=== PATIENT | female | born 1930 | race Caucasian/White ===

== ENCOUNTER 2017-05-29 14:20 | Inpatient (IN) | payer MEDICARE, BC ==
[~2017-05-29] VITALS: Ht 162.6 cm; Wt 61.4 kg
[~2017-05-29 14:20] MED LIST: ALEN1TAB48 PO; ASPI81CH37 CHEW; FISHCAP4 PO; HYDR200T3 PO; LEVO88TA2 PO; LISI10TA3 PO; OMEP40CA2 PO; PRED1 PO; SIMV40TA PO
[2017-05-29] MEDS ORDERED: NALOXONE HCL 0.4 MG/ML AMP IV PUSH PRN (19:15)
[2017-05-29] MEDS ORDERED: SODIUM CHLORIDE 0.9% FLUSH 10 ML FLUSH IV FLUSH PRN (19:15)
[2017-05-29] MEDS ORDERED: ONDANSETRON HCL 4 MG/2 ML VIAL IV PUSH PRN (19:15)
[2017-05-29 20:05] VITALS: BP 162/64; PULSE 78; RESP 16; TEMP 97.6; O2SAT 95
[2017-05-29 21:21] VITALS: PULSE 86
[2017-05-29] MEDS ORDERED: INSULIN HUMAN REGULAR 1,000 UNITS/10 ML VIAL SQ PRN (22:00)
[2017-05-29] MEDS ORDERED: CHLORHEXIDINE GLUCONATE 2 % 1 PACK (2 CLOTHS) TOPICAL PRN (22:00)
[2017-05-29] MEDS ORDERED: POVIDONE IODINE 5% (ANTISEPSIS KIT) 4 APPLICATIONS EACH NARE PRN (22:00)
[2017-05-29] MEDS ORDERED: SODIUM CHLORID 0.9% 500 ML IV PRN (22:00)
[2017-05-29] MEDS ORDERED: LACTATED RINGER'S 1000 ML IV PRN (22:00)
[2017-05-29] MEDS ORDERED: METOPROLOL TARTRATE 25 MG TAB PO PRN (22:00)
--- NOTE | 2017-05-29 22:07 | HHI.HP ---
HPI Service [facility] Primary Care Physician Raghav Caba MD Admission Diagnosis Diagnoses: History of Present Illness came from outside, went to kitchen, around 9a.m.today. 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- done in [place] about 3 yrs ago left ear cancer - skin cancer, benign hypothyroidism Past Surgical History left ear cancer removal skin cancer of head and nose removed bilateral hip replacement hysterectomy heart valve replaced left knee replaced appendectomy at 6yo Allergies: Coded Allergies: No Known Allergies (Verified Allergy, Unknown, 05/29/17) Family History mother - dm Social History no smoking/ no etoh/ no drugs lives on her own, but no longer drives, nephew lives around the corner from her Physical Exam Vital Signs Vital Signs Date Time Temp Pulse Resp B/P (MAP) Pulse Ox O2 Delivery O2 Flow Rate FiO2 05/29/17 21:21 86 05/29/17 20:05 97.6 78 16 162/64 (96) 95 Physical Exam GENERAL: This is a well-nourished, well-developed patient, in no apparent distress. SKIN: No rashes, ecchymoses or lesions. Cool and dry. HEAD: Atraumatic. Normocephalic. No temporal or scalp tenderness. EYES: Pupils equal round and reactive. Extraocular motions intact. No scleral icterus. No injection or drainage. ENT: Nose without bleeding, purulent drainage or septal hematoma. Throat without erythema, tonsillar hypertrophy or exudate. Uvula midline. Airway patent. NECK: Trachea midline. No JVD or lymphadenopathy. Supple, nontender, no meningeal signs. CARDIOVASCULAR: Regular rate and rhythm without murmurs, gallops, or rubs. RESPIRATORY: Clear to auscultation. Breath sounds equal bilaterally. No wheezes , rales, or rhonchi. GASTROINTESTINAL: Abdomen soft, non-tender, nondistended. No hepato-splenomegaly , or palpable masses. No guarding. MUSCULOSKELETAL: Extremities without clubbing, cyanosis, or edema. No joint tenderness, effusion, or edema noted. No calf tenderness. Negative Homans sign bilaterally. NEUROLOGICAL: Awake and alert. Cranial nerves II through XII intact. Motor and sensory grossly within normal limits. Five out of 5 muscle strength in all muscle groups. Normal speech. Caprini VTE Risk Assessment Caprini VTE Risk Assessment: Mod/High Risk (score >= 2) Caprini Risk Assessment Model Point Value = 1 Point Value = 2 Point Value = 3 Point Value = 5 Age 41-60 Minor surgery BMI > 25 kg/m2 Swollen legs Varicose veins or History of unexplained or recurrent spontaneous Oral contraceptives or hormone replacement Sepsis (< 1 month) Serious lung disease, including pneumonia (< 1 month) Abnormal pulmonary function Acute myocardial infarction Congestive heart failure (< 1 month) History of inflammatory bowel disease Medical patient at bed rest Age 61-74 Arthroscopic surgery Major open surgery (> 45 min) Laparoscopic surgery (> 45 min) Malignancy Confined to bed (> 72 hours) Immobilizing plaster cast Central venous access Age >= 75 History of VTE Family history of VTE Factor V Leiden Prothrombin [id number] Lupus anticoagulant Anticardiolipin antibodies Elevated serum homocysteine Heparin-induced thrombocytopenia Other congenital or acquired thrombophilia Stroke (< 1 month) Elective arthroplasty Hip, pelvis, or leg fracture Acute spinal cord injury (< 1 month) Prophylaxis Regimen Total Risk Factor Score Risk Level Prophylaxis Regimen 0-1 Low Early ambulation 2 Moderate Order ONE of the following: *Sequential Compression Device (SCD) *Heparin 5000 units SQ BID 3-4 Higher Order ONE of the following medications: *Heparin 5000 units SQ TID *Enoxaparin/Lovenox 40 mg SQ daily (WT < 150 kg, CrCl > 30 mL/min) *Enoxaparin/Lovenox 30 mg SQ daily (WT < 150 kg, CrCl > 10-29 mL/min) *Enoxaparin/Lovenox 30 mg SQ BID (WT < 150 kg, CrCl > 30 mL/min) AND/OR *Sequential Compression Device (SCD) 5 or more Highest Order ONE of the following medications: *Heparin 5000 units SQ TID (Preferred with Epidurals) *Enoxaparin/Lovenox 40 mg SQ daily (WT < 150 kg, CrCl > 30 mL/min) *Enoxaparin/Lovenox 30 mg SQ daily (WT < 150 kg, CrCl > 10-29 mL/min) *Enoxaparin/Lovenox 30 mg SQ BID (WT < 150 kg, CrCl > 30 mL/min) AND *Sequential Compression Device (SCD) Assessment and Plan Assessment and Plan s/p fall left hip intertroch fx htn heart valve replaced with pig valve 3 yrs ago hypothyroidism arthritis- on hydroxychloroquine and prednisone at home npo ortho consult pain control resume home meds hold asa dvt prophylaxis with scd gi prophylaxis with pantoprazole Physician Certification Order for Inpatient Services The services are ordered in accordance with Medicare regulations or non- Medicare payer requirements, as applicable. In the case of services not specified as inpatient-only, they are appropriately provided as inpatient services in accordance with the 2-midnight benchmark. days is the estimated time the patient will need to remain in the hospital, assuming treatment plan goals are met and no additional complications. Brenda Landa MD May 29, 2017 22:07
[2017-05-30] VITALS: BP 136/72; PULSE 85; RESP 16; TEMP 96.5; O2SAT 95
[2017-05-30 04:00] VITALS: BP 109/51; PULSE 69; RESP 15; TEMP 98.2; O2SAT 98
[2017-05-30] MEDS: LEVOTHYROXINE SODIUM 88 MCG TAB PO SCH (06:00)
[2017-05-30 07:21] LABS: AUTOMATED NEUTROPHIL # 3.9 TH/MM3 (1.8-7.7); BASOPHIL % 0.4 % (0.0-2.0); EOSINOPHIL % 0.4 % (0.0-4.0); HEMO FLAGS DIFF FINAL; LYMPH % 21.9 % (9.0-44.0); LYMPHOCYTE # 1.3 TH/MM3 (1.0-4.8); MEAN CELL VOLUME 90.9 FL (80.0-100.0); MEAN CORPUSCULAR HEMOGLOBIN 31.5 PG (27.0-34.0); MEAN CORPUSCULAR HGB CONC 34.7 % (32.0-36.0); MONO % 11.8 % (0.0-8.0); NEUT % 65.5 % (16.0-70.0); PLATELET COUNT 214 TH/MM3 (150-450); RED BLOOD COUNT 3.08 MIL/MM3 (4.00-5.30); RED CELL DISTRIBUTION WIDTH 12.8 % (11.6-17.2)
[2017-05-30 07:46] LABS: BICARBONATE 26.9 MEQ/L (21.0-32.0); POTASSIUM 4.1 MEQ/L (3.5-5.1)
[2017-05-30 08:00] VITALS: BP 113/49; PULSE 80; RESP 16; TEMP 98.3; O2SAT 96
[2017-05-30] MEDS: HYDROXYCHLOROQUINE SULFATE 200 MG TAB PO SCH ×2 (08:31→18:20)
[2017-05-30] MEDS: PANTOPRAZOLE SOD 40 MG DELAYED RELEASE TAB PO SCH (08:31)
[2017-05-30] MEDS: LISINOPRIL 10 MG TAB PO SCH (08:31)
[2017-05-30] MEDS: predniSONE 1 MG TAB PO SCH (08:31)
[2017-05-30] MEDS: SODIUM CHLORIDE 0.9% FLUSH 10 ML FLUSH IV FLUSH SCH ×2 (08:39→20:55)
[2017-05-30] MEDS: MORPHINE SULFATE 2 MG/ML INJ IV PUSH PRN ×2 (08:39→18:20)
[2017-05-30 12:00] VITALS: BP 101/65; PULSE 72; RESP 16; TEMP 97.7; O2SAT 95
[2017-05-30] MEDS ORDERED: WALKER WHEELS/F1 MIS (12:36)
--- NOTE | 2017-05-30 14:22 | MB ---
cc: AMIRA MCGEE DATE OF CONSULTATION: 05/30/2017 DATE OF : 1930 CHIEF COMPLAINT Left hip pain and left upper arm pain. HISTORY OF PRESENT ILLNESS The patient states she was at home in her kitchen when she fell trying to move a chair. The patient landed on her left hip and left shoulder. The patient reported immediate pain to the left hip and was unable to stand or ambulate. The patient denies loss of consciousness or hitting her head. The patient reports being able to move her left arm, however, this is limited compared to her normal range of motion. The patient used her LifeLine and called EMS who arrived and transported her to the hospital. Currently the patient reports moderate pain over the lateral aspect of her hip with movement. The patient also reports pain to the left upper arm and reports limited range of motion overhead. The patient denies any previous history of injury to the left upper extremity. The patient did have a left hip replacement in the past. The patient denies any tingling or numbness about the left upper or lower extremity. The patient reports having swelling over the lateral aspect of her hip. REVIEW OF SYSTEMS A review of systems is negative x12 except for what is stated in the HPI. PAST MEDICAL HISTORY 1. High blood pressure. 2. Skin cancer. 3. Osteoarthritis. PAST SURGICAL HISTORY 1. Removal of skin cancer from the left ear and face. 2. Bilateral hip replacements. 3. Left knee replacement. 4. Heart bypass with valve replacement. 5. Hysterectomy. 6. Appendectomy. ALLERGIES The patient has no known allergies. FAMILY HISTORY Mother had diabetes. SOCIAL HISTORY The patient denies any tobacco, alcohol, or drug use. The patient does report living alone. PHYSICAL EXAMINATION VITAL SIGNS: Temperature 98.3, heart rate 80, respirations 16, blood pressure 113/49, and pulse ox 96% on room air. GENERAL: The patient is a well-developed and well-nourished white female in no significant distress. SKIN: The patient has bruising about the right knee, left hip and left upper extremity. There are no rashes. The skin is cool and dry. HEAD: The patient's head is atraumatic and normocephalic. EYES: PERRLA. Extraocular movements are intact. EARS, NOSE, AND THROAT: There is no bleeding from the nose or ears. Moist mucous membranes. NECK: The patient's trachea is midline. The neck is supple. CARDIOVASCULAR: The patient has a regular rate and rhythm. The patient has 2+ pedal and radial pulses. PULMONARY: The patient has a symmetric chest wall rise and nonlabored breathing. ABDOMEN: The patient's abdomen is soft, nontender and nondistended. EXTREMITIES: The patient has good range of motion and no tenderness about the right hand, wrist, elbow, and shoulder. The patient's left upper extremity has no tenderness and good range of motion of the left wrist, hand, and elbow with limited range of motion of the left shoulder. There is some ecchymosis and tenderness to palpation over the left shoulder. I do not appreciate any crepitus with palpation. Regarding the patient's right lower extremity, there is no tenderness and good range of motion of the right ankle, knee and hip. There is some bruising about the right knee with mild swelling. Regarding the patient's left lower extremity, the patient has good range of motion and no tenderness about the left foot, ankle, and knee. The patient does have a well-healed incision about the left knee and the left hip. The patient has limited range of motion of the left hip with internal and external rotation. There is no groin pain with internal and external rotation, however, the patient does have some tenderness about the lateral aspect of the hip along with swelling and tenderness to palpation. Skin is intact about the left hip. NEUROLOGIC: The patient is alert and oriented x3 with cranial nerves intact. LABORATORY White blood cell count 6, hemoglobin 9.7, hematocrit 28, platelets 214. Creatinine 1.21. Glucose is 87. IMAGING X-ray of the right knee four views was taken on 05/29/2017 and reads as no evidence of recent bony injury. The patient has moderate severity compartmental osteoarthritis. I have reviewed these images and agree that I do not see any obvious fracture to the knee. I would say the patient has severe patellofemoral osteoarthritis with moderate to severe tibial femoral osteoarthritis. X-rays taken of the left hip and pelvis on 05/29/2017 reads as no evidence of fracture or dislocation of the left total hip arthroplasty. There is lucency at the metal bone interface in the supra-acetabular region and lucency at the cement bone interface proximally in the lateral formal region. Both of these findings suggest possible loosening. I did review these images and I am not convinced that there is any fracture of the acetabulum. I do not see any obvious loosening of the formal prosthesis. There is what appears to be a fracture of the greater trochanter. The fracture is minimally displaced and in overall good position. IMPRESSION 1. Left total hip arthroplasty from outside physician. 2. Fracture of the left hip greater trochanter with minimal displacement. 3. Right knee contusion. 4. Left shoulder pain, rule out fracture versus contusion. MEDICAL DECISION-MAKING After reviewing the images and evaluating the patient I do feel that we can manage the patient's injuries nonoperatively. Regarding the patient's right knee contusion, I would recommend ice and activity modification. Regarding the patient's left upper extremity complaints, I am going to order a stat. x-ray to rule out fracture. In the meantime the patient should limit her activity with the left upper extremity. The patient should be non-weightbearing at this time with the left upper extremity. The patient should use ice for swelling and pain. I am also going to order some pain medication by mouth for pain control. Regarding the patient's left hip, I do not see any obvious complication with the previous left hip replacement. The patient does have a minimally displaced fracture of the greater trochanter which I feel can be managed nonoperatively. I am going to order an abduction pillow for the patient to use while in bed. I am also going to limit the patient's weightbearing to toe-touch weightbearing on the left lower extremity. The patient should use ice for swelling. We discussed the need for close follow-up with this as any change in the patient's current fracture pattern or any signs of loosening of the prosthesis could warrant surgical intervention. We also discussed this diagnosis in detail and discussed the length of time required for healing. I do feel that the patient can have some physical therapy for instruction in toe-touch weightbearing as well as instruction in transfer techniques. I will follow-up with the patient tomorrow to follow-up on the x-rays of the left humerus and to establish a plan of care for this moving forward. I have discussed the aforementioned impression and plan of care with Dr. Mcgee and he agrees with this documentation. Dictated by; LIAM Calvo MD CALI Stokes/GEORGE /12:12 PM /2:13 PM
--- NOTE | 2017-05-30 14:37 | RADRPT ---
EXAM DATE/TIME: 05/30/2017 14:15 [facility] COMPARISON: No previous studies available for comparison. INDICATIONS : Fall, left humerus pain. MEDICAL HISTORY : Cardiovascular disease. SURGICAL HISTORY : None. ENCOUNTER: Subsequent ACUITY: 2 days PAIN SCORE: 4/10 LOCATION: Left Humerus FINDINGS: Two view examination of the left humerus demonstrates no evidence of fracture or dislocation. Bony m ineralization is normal. The soft tissue structures are intact. CONCLUSION: 1. No acute fracture or dislocation. Cameron Cooley MD on May 30, 2017 at 14:34 Board Certified Radiologist. This report was verified electronically.
[2017-05-30 16:30] VITALS: BP 138/59; PULSE 90; RESP 16; TEMP 98; O2SAT 97
[2017-05-30] MEDS ORDERED: ACETAMINOPHEN/HYDROcodone 325 MG/5 MG TAB PO PRN (19:15)
--- NOTE | 2017-05-30 19:36 | HHI.PR ---
Subjective Remarks In bed, no fever no chest pain or short of breath Pain in the hip Objective Vitals Vital Signs Date Time Temp Pulse Resp B/P (MAP) Pulse Ox O2 Delivery O2 Flow Rate FiO2 05/30/17 18:25 16 05/30/17 16:30 98.0 90 16 138/59 (85) 97 05/30/17 12:00 97.7 72 16 101/65 (77) 95 05/30/17 08:00 98.3 80 16 113/49 (70) 96 05/30/17 04:00 98.2 69 15 109/51 (70) 98 05/30/17 00:00 96.5 85 16 136/72 (93) 95 05/29/17 21:21 86 05/29/17 20:05 97.6 78 16 162/64 (96) 95 I/O 05/29/17 05/29/17 05/29/17 05/30/17 05/30/17 05/30/17 07:00 15:00 23:00 07:00 15:00 23:00 Intake Total 480 ml 480 ml Output Total 0 ml Balance 480 ml 480 ml Intake Oral 480 ml 480 ml Output Stool Total 0 ml # Voids 1 # Bowel Movements 0 Result Diagram: 05/30/17 0550 05/30/17 0550 Objective Remarks GENERAL: This is a well-nourished, well-developed patient, in no apparent distress. SKIN: No rashes, warm and dry HEAD: Atraumatic. Normocephalic. EYES: Pupils equal round and reactive. Extraocular motions intact. No scleral icterus. ENT: Nose without bleeding, or drainage, Airway patent. NECK: Trachea midline. Supple CARDIOVASCULAR: Regular rate and rhythm positive systolic murmur RESPIRATORY: Fair air entry bilaterally. No wheezes, rales, or rhonchi. GASTROINTESTINAL: Abdomen soft, non-tender, nondistended. Positive bowel sounds MUSCULOSKELETAL: Extremities without clubbing, cyanosis, or edema. Pedal pulses appreciated NEUROLOGICAL: Awake and alert. Moves all extremity. Normal speech.no focal neurological deficit A/P Assessment and Plan s/p fall left hip intertroch fx htn heart valve replaced with pig valve 3 yrs ago hypothyroidism arthritis- on hydroxychloroquine and prednisone at home Appreciate ortho consultation pain control resume home meds hold asa dvt prophylaxis with scd gi prophylaxis with pantoprazole Holland Dillard MD May 30, 2017 19:36
[2017-05-30 20:05] VITALS: BP 132/68; PULSE 81; RESP 17; TEMP 98.8; O2SAT 96
[2017-05-30] MEDS: ACETAMINOPHEN/HYDROcodone 325 MG/5 MG TAB PO PRN (20:51)
[2017-05-30] MEDS: PRAVASTATIN SOD 80 MG TAB PO SCH ×2 (20:54→21:20)
--- NOTE | 2017-05-30 21:27 | EKG ---
Date Performed: 05/29/2017 Time Performed: 21:53:53 PTAGE: 87 years EKG: Sinus rhythm NONSPECIFIC T-WAVE ABNORMALITY BORDERLINE ECG NO PREVIOUS TRACING DOCTOR: Elvira Mccormick Interpretating Date/Time 05/30/2017 21:25:47
[2017-05-31] VITALS: BP 109/48; PULSE 74; RESP 20; TEMP 98; O2SAT 95
[2017-05-31 04:00] VITALS: BP 126/51; PULSE 72; RESP 18; TEMP 99.1; O2SAT 96
[2017-05-31] MEDS: ACETAMINOPHEN/HYDROcodone 325 MG/5 MG TAB PO PRN ×3 (04:50→18:39)
[2017-05-31] MEDS: LEVOTHYROXINE SODIUM 88 MCG TAB PO SCH (04:50)
[2017-05-31 08:00] VITALS: BP 110/43; PULSE 60; RESP 16; TEMP 97.8; O2SAT 96
[2017-05-31] MEDS: LISINOPRIL 10 MG TAB PO SCH (09:00)
[2017-05-31] MEDS: HYDROXYCHLOROQUINE SULFATE 200 MG TAB PO SCH ×2 (09:35→18:39)
[2017-05-31] MEDS: PANTOPRAZOLE SOD 40 MG DELAYED RELEASE TAB PO SCH (09:35)
[2017-05-31] MEDS: predniSONE 1 MG TAB PO SCH (09:35)
[2017-05-31] MEDS: SODIUM CHLORIDE 0.9% FLUSH 10 ML FLUSH IV FLUSH SCH ×2 (09:35→19:31)
[2017-05-31] MEDS: MORPHINE SULFATE 2 MG/ML INJ IV PUSH PRN (10:49)
[2017-05-31 12:00] VITALS: BP 100/47; PULSE 98; RESP 16; TEMP 86; O2SAT 95
--- NOTE | 2017-05-31 12:44 | PD.ORT.PN ---
Subjective Subjective Remarks Patient is OOB in chair with continued pain to the lateral aspect of the hip with movement. Minimal pain when resting. Patient still reports pain to the LUE with movement. Patient denies tingling or numbness to the LLE or LUE. Objective Vitals Vital Signs Date Time Temp Pulse Resp B/P (MAP) Pulse Ox O2 Delivery O2 Flow Rate FiO2 05/31/17 08:00 97.8 60 16 110/43 (65) 96 05/31/17 04:00 99.1 72 18 126/51 (76) 96 05/31/17 00:00 98.0 74 20 109/48 (68) 95 05/30/17 20:05 98.8 81 17 132/68 (89) 96 05/30/17 18:25 16 05/30/17 16:30 98.0 90 16 138/59 (85) 97 I/O 05/30/17 05/30/17 05/30/17 05/31/17 05/31/17 05/31/17 07:00 15:00 23:00 07:00 15:00 23:00 Intake Total 480 ml Balance 480 ml Intake Oral 480 ml # Voids 1 2 # Bowel Movements 0 Result Diagram: 05/30/17 0550 05/30/17 0550 Imaging Last 48 hours Impressions Humerus X-Ray 05/30/17 0000 Signed Impressions: Service Date/Time: Tuesday, May 30, 2017 14:15 - CONCLUSION: 1. No acute fracture or dislocation. Cameron Cooley MD Objective Remarks LUE The patient continues to have mild bruising to the left shoulder with mild swelling. Patient has limited AROM overhead. 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 EHL/TA/G intact. 2+ pedal pulse. Calf is soft and nontender. + SILT. Well healed posterior hip incision. Limited AROM to the left hip. Skin is intact. Assessment & Plan Assessment and Plan Left hip greater trochanteric fracture Left DANITA, outside physician Right knee contusion Left shoulder moderate osteoarthritis with contusion 1. TTWB LLE 2. WBAT LUE 3. Hip ABD pillow while in bed. 4. Ice to the left hip, left shoulder, and right knee PRN 5. I reviewed and discussed the imaging of the left upper extremity which shows moderate OA of the left shoulder and no fracture. 6. Anticipatory discharge to SNF. Stable per ortho for discharge once cleared by medical. 7. F/U in the office with Dr. Hurd or LIAM Ramirez in 1-2 weeks. Jhonatan Marquez May 31, 2017 12:44
[2017-05-31] MEDS ORDERED: DEXTROSE 50% IN WATER 50 ML VIAL(D50) IV PUSH PRN (16:00)
[2017-05-31] MEDS ORDERED: GLUCAGON 1 MG/ML VIAL OTHER PRN (16:00)
--- NOTE | 2017-05-31 18:11 | HHI.PR ---
Subjective Remarks Follow up on fall and fracture Patient stable pain is tolerable, plan for discharge to SNF hopefully in a.m. Objective Vitals Vital Signs Date Time Temp Pulse Resp B/P (MAP) Pulse Ox O2 Delivery O2 Flow Rate FiO2 05/31/17 12:00 86.0 98 16 100/47 (64) 95 05/31/17 08:00 97.8 60 16 110/43 (65) 96 05/31/17 04:00 99.1 72 18 126/51 (76) 96 05/31/17 00:00 98.0 74 20 109/48 (68) 95 05/30/17 20:05 98.8 81 17 132/68 (89) 96 05/30/17 18:25 16 I/O 05/30/17 05/30/17 05/30/17 05/31/17 05/31/17 05/31/17 07:00 15:00 23:00 07:00 15:00 23:00 Intake Total 480 ml Balance 480 ml Intake Oral 480 ml # Voids 1 2 # Bowel Movements 0 Result Diagram: 05/30/17 0550 05/30/17 0550 Objective Remarks GENERAL: This is a well-nourished, well-developed patient, in no apparent distress. SKIN: No rashes, warm and dry HEAD: Atraumatic. Normocephalic. EYES: Pupils equal round and reactive. Extraocular motions intact. No scleral icterus. ENT: Nose without bleeding, or drainage, Airway patent. NECK: Trachea midline. Supple CARDIOVASCULAR: Regular rate and rhythm positive systolic murmur RESPIRATORY: Fair air entry bilaterally. No wheezes, rales, or rhonchi. GASTROINTESTINAL: Abdomen soft, non-tender, nondistended. Positive bowel sounds MUSCULOSKELETAL: Extremities without clubbing, cyanosis, or edema. Pedal pulses appreciated NEUROLOGICAL: Awake and alert. Moves all extremity. Normal speech.no focal neurological deficit A/P Assessment and Plan 87 y/o female came s/p fall , left hip intertroch fx , htn , heart valve replaced with pig valve 3 yrs ago , hypothyroidism arthritis- on hydroxychloroquine and prednisone at home Ortho consulted pain management provided, we held aspirin Holland Dillard MD May 31, 2017 18:11
[2017-05-31] MEDS: PRAVASTATIN SOD 80 MG TAB PO SCH (19:29)
[2017-05-31 20:00] VITALS: BP 109/59; PULSE 61; PULSE 64; RESP 17; TEMP 98.3; O2SAT 96
[2017-06-01] VITALS: BP 119/62; PULSE 68; RESP 16; TEMP 97.5; O2SAT 98
[2017-06-01] MEDS: ACETAMINOPHEN/HYDROcodone 325 MG/5 MG TAB PO PRN ×3 (03:59→16:03)
[2017-06-01 04:00] VITALS: BP 134/65; PULSE 77; RESP 17; TEMP 97.1; O2SAT 97
[2017-06-01] MEDS: LEVOTHYROXINE SODIUM 88 MCG TAB PO SCH (04:56)
[2017-06-01 08:00] VITALS: BP 132/52; PULSE 65; RESP 18; TEMP 97.4; O2SAT 96
[2017-06-01] MEDS: LISINOPRIL 10 MG TAB PO SCH (08:28)
[2017-06-01] MEDS: predniSONE 1 MG TAB PO SCH (08:28)
[2017-06-01] MEDS: HYDROXYCHLOROQUINE SULFATE 200 MG TAB PO SCH (08:28)
[2017-06-01] MEDS: SODIUM CHLORIDE 0.9% FLUSH 10 ML FLUSH IV FLUSH SCH (08:29)
[2017-06-01] MEDS: PANTOPRAZOLE SOD 40 MG DELAYED RELEASE TAB PO SCH (08:29)
[2017-06-01 11:27] VITALS: PULSE 68
--- NOTE | 2017-06-01 11:41 | HHI.DS ---
Discharge Summary Admission Date May 29, 2017 at 19:35 Discharge Date: Jun 01, 2017 Admitting Diagnosis (1) Fracture of greater trochanter ICD Code: S72.113A - Displaced fracture of greater trochanter of unspecified femur, initial encounter for closed fracture Procedures See below Brief History - From Admission came from outside, went to kitchen, around 9a.m.today. she was trying to move a chair and in so doing, the chair was moving forward and she fell down with it fell forward, and then to left did not hit head did not loose consciousness landed on left arm and left hip - felt like she got a knot not able to get up, has life alert and called for help then ambulance was sent right away and she got to hospital in [place] no premonitory symptoms no other symptoms in past week CBC/BMP: 05/30/17 0550 05/30/17 0550 Significant Findings Laboratory Tests Test 05/30/17 05:50 Red Blood Count 3.08 MIL/MM3 (4.00-5.30) Hemoglobin 9.7 GM/DL (11.6-15.3) Hematocrit 28.0 % (35.0-46.0) Monocytes (%) (Auto) 11.8 % (0.0-8.0) Blood Urea Nitrogen 24 MG/DL (7-18) Creatinine 1.21 MG/DL (0.50-1.00) Estimat Glomerular Filtration Rate 42 ML/MIN (>89) PE at Discharge GENERAL: This is a well-nourished, well-developed patient, in no apparent distress. SKIN: No rashes, warm and dry HEAD: Atraumatic. Normocephalic. EYES: Pupils equal round and reactive. Extraocular motions intact. No scleral icterus. ENT: Nose without bleeding, or drainage, Airway patent. NECK: Trachea midline. Supple CARDIOVASCULAR: Regular rate and rhythm positive systolic murmur RESPIRATORY: Fair air entry bilaterally. No wheezes, rales, or rhonchi. GASTROINTESTINAL: Abdomen soft, non-tender, nondistended. Positive bowel sounds MUSCULOSKELETAL: Extremities without clubbing, cyanosis, or edema. Pedal pulses appreciated NEUROLOGICAL: Awake and alert. Moves all extremity. Normal speech.no focal neurological deficit Hospital Course 87 y/o female came s/p fall , left hip intertroch fx , htn , heart valve replaced with pig valve 3 yrs ago , hypothyroidism arthritis- on hydroxychloroquine and prednisone at home Ortho consulted pain management provided, we held aspirin resume at discharge [id number] encounter performed with the patient on discharge day, as well as physical exam, summary of hospitalization course and postdischarge plan has been D/W the patient. D/W nurse D/W lead case manager. Discharge medications reviewed and printed and signed, post discharge follow up visit with PCP and other specialist as well as Brief hospital course and discharge summary has been placed. Pt Condition on Discharge: Fair Discharge Disposition: Discharge to SNF Discharge Time: > 30 minutes Discharge Instructions DIET: Follow Instructions for: Heart Healthy Diet Activities you can perform: Weight Bearing as Miguel Follow up Referrals: Orthopedics with Alex Hurd MD New Medications: Walker with Front Wheels (Walker with Front Wheels) 1 Mis Mis EA .ROUTE DIRECTED, #1 0 Refills Continued Medications: Alendronate (Alendronate) 70 Mg Tab 70 MG PO Q7D for Osteporosis Treatment, TAB 0 Refills Aspirin (Aspirin Low Dose) 81 Mg Chew 81 MG CHEW DAILY, TAB 0 Refills Fish Oil-Cholecalciferol (Fish Oil + D3) 1,200-1,000 Mg-Unit Cap 1 CAP PO DAILY for Nutritional Supplement, CAP 0 Refills Hydroxychloroquine (Hydroxychloroquine) 200 Mg Tab 200 MG PO BID, TAB 0 Refills Takw with food Levothyroxine (Levothyroxine) 88 Mcg Tab 88 MCG PO DAILY for Thyroid, TAB 0 Refills Lisinopril (Lisinopril) 10 Mg Tab 10 MG PO DAILY, TAB 0 Refills Omeprazole (Omeprazole) 40 Mg Cap 40 MG PO DAILY, CAP 0 Refills Prednisone (Prednisone) 1 Mg Tab 1 MG PO DAILY, TAB 0 Refills Simvastatin (Simvastatin) 40 Mg Tab 40 MG PO HS for Cholesterol Management, TAB 0 Refills Holland Dillard MD Jun 01, 2017 11:41
[2017-06-01] MEDS ORDERED: BISACODYL 10 MG SUPP RECTAL PRN (11:45)
[2017-06-01] MEDS ORDERED: MAGNESIUM HYDROXIDE SUSP 30 ML CUP PO PRN (11:45)
[2017-06-01 12:00] VITALS: BP 108/41; PULSE 69; RESP 17; TEMP 97.4; O2SAT 99
[2017-06-01] MEDS ORDERED: DOCUSATE SODIUM 50 MG/SENNA 8.6 MG TAB PO SCH (12:15)
[2017-06-01] MEDS ORDERED: HYDR-3516 PO (13:43)
[2017-06-01 16:00] VITALS: BP 146/66; PULSE 69; RESP 18; TEMP 96; O2SAT 100
== END 2017-06-01 16:12 | DRG 536 ==
LOC: NEDDLT 19:25 → N06A 19:35
PROVIDERS: ADMIT Hospitalist; ATTEND Hospitalist
DX: S72.112A Displaced fracture of greater trochanter of left femur, initial encounter for closed fracture (principal); I10 Essential (primary) hypertension; M19.90 Unspecified osteoarthritis, unspecified site; S80.01XA Contusion of right knee, initial encounter; E03.9 Hypothyroidism, unspecified; Z96.643 Presence of artificial hip joint, bilateral; W01.0XXA Fall on same level from slipping, tripping and stumbling without subsequent striking against object, initial encounter; M25.512 Pain in left shoulder; Z96.652 Presence of left artificial knee joint; Z85.828 Personal history of other malignant neoplasm of skin; Y92.000 Kitchen of unspecified non-institutional (private) residence as the place of occurrence of the external cause; Z95.3 Presence of xenogenic heart valve
CPT/HCPCS: 73060; 73502; 73564; 80048; 80053; 85025; 86850; 86900; 86901; 93005; J2270; J2405; J7512